=== PATIENT | female | born 1990 | race African-American/Black ===

== ENCOUNTER → 2016-09-01 | Outpatient (CLI) | payer OTHER ==
[2014-12-05 19:18] VITALS: BP 122/75
--- NOTE | 2016-09-01 14:25 | RAD ---
HISTORY: Knee Pain. Study: Complete three view series of the right knee joint. Comparison: None available. Findings: No acute fracture, subluxation, or dislocation is identified. The medial and lateral tibiofemoral c ompartments appear unremarkable without loss of significant joint space. The lateral radiograph genaro ls to demonstrate a visible joint effusion. Patellofemoral compartment is unremarkable in appearanc e. No lytic or bone forming lesions are seen. No high-grade osteochondral defects are observed. No u nexpected radiopaque foreign bodies are seen. There is no evidence for significant degenerative arth rosis. No focal joint erosions are seen, either. IMPRESSION: Trace knee joint fluid without acute fracture, dislocation, or subluxation seen. Reported By:
--- NOTE | 2016-09-01 14:25 | RAD ---
HISTORY: Knee Pain. Effusion. Study: Complete three view series left knee Comparison: None available. Findings: No acute fracture, subluxation, or dislocation is identified. The medial and lateral tibiofemoral c ompartments appear unremarkable without loss of significant joint space. There is a Small knee joint effusion observed with diffuse periarticular knee joint soft tissue swelling and soft tissue edema in Hoffa's fat pad; findings which can indicate internal derangement of the left knee joint. If ther e is concern for an ACL or meniscal injury, then MR imaging of the knee joint would be appropriate i n this setting. No lytic or bone forming lesions are seen. No high-grade osteochondral defects are o bserved. No unexpected radiopaque foreign bodies are seen. There is no evidence for significant dege nerative arthrosis. No focal joint erosions are seen, either. IMPRESSION: Small left knee joint effusion and soft tissue edema throughout Hoffa's fat pad with periarticular s oft tissue swelling but without evidence for acute fracture or dislocation. If there is concern for internal derangement of the knee joint, MR imaging is recommended to exclude any ACL, PCL, collateral ligament, or meniscal injuries. Reported By:
--- NOTE | 2016-09-01 14:51 | RAD ---
Examination: X-rays of the lumbar spine. Clinical History: Lumbosacral radiculopathy. Technique: Three views of the lumbar spine were obtained. Comparison: None available. Findings: Short vestigial ribs are seen associated with the T12 vertebra. There are 4 non rib-bearing lumbar t ype vertebra. The vertebral body alignment is within normal limits. The intervertebral disc spaces are well maintained. No arthropathy is noted. No acute fracture, dislocation or destructive bony lesion is noted. No spondylolysis or spondylolist hesis is noted. No soft tissue abnormality is noted. Impression: 1. No acute fracture or dislocation. Reported By:
== END ==
LOC: RAD 13:28
PROVIDERS: ATTEND Nurse Practitioner Family
DX: M25.561 Pain in right knee (principal); M25.562 Pain in left knee; M54.17 Radiculopathy, lumbosacral region; M25.462 Effusion, left knee; R60.0 Localized edema
CPT/HCPCS: 72100; 73564